=== PATIENT | female | born 1995 | race American Indian/Alaskan Native ===

== ENCOUNTER 2018-10-20 11:37 | Emergency (ER) | payer OTHER, MEDICAID ==
--- NOTE | 2018-10-20 11:52 | Emergency Department Report ---
Blank Doc - Documentation Documentation: This is a 23-year-old female that presents with left foot pain after twisting it today. This initial assessment/diagnostic orders/clinical plan/treatment(s) is/are subject to change based on patient's health status, clinical progression and re- assessment by fellow clinical providers in the ED. Further treatment and workup at subsequent clinical providers discretion. Patient/guardians urged not to elope from the ED as their condition may be serious if not clinically assessed and managed. Initial orders include: 1- Patient sent to [facility] for further evaluation and treatment 2- Xray
--- NOTE | 2018-10-20 12:12 | XRay Report ---
LEFT FOOT, 3 views: History: Left foot pain. The bony architecture is intact. Bony alignment is normal. No soft tissue abnormalities are seen. The joint spaces appear preserved. IMPRESSION: Left foot within normal limits.
[2018-10-20] MEDS ORDERED: IBUPROFEN PO ONE (14:39)
--- NOTE | 2018-10-20 14:45 | Emergency Department Report ---
ED Extremity Problem HPI - General Chief complaint: Extremity Injury, Lower Stated complaint: L ANKLE PAIN Time Seen by Provider: 10/20/18 11:51 Source: patient Mode of arrival: Wheelchair Limitations: No Limitations - History of Present Illness Initial comments: This is a 23-year-old female that presents with left foot pain after twisting it today. -: This afternoon Location: left, lower extremity (ankle) History of Same: No -: Yes myalgia Severity scale (0 -10): 10 Quality: aching, sharp Consistency: constant Improves with: nothing Worsens with: weight bearing, walking - Related Data Previous Rx's Medication Instructions Recorded Last Taken Type traMADol [Ultram] 50 mg PO Q6HR PRN #14 tablet 02/01/15 Unknown Rx Ibuprofen [Motrin 800 MG tab] 800 mg PO Q8HR PRN #30 tablet 10/20/18 Unknown Rx Allergies Allergy/AdvReac Type Severity Reaction Status Date / Time shellfish derived Allergy Swelling Verified 01/29/13 19:46 ED Review of Systems ROS: Stated complaint: L ANKLE PAIN Other details as noted in HPI Comment: All other systems reviewed and negative ED Past Medical Hx - Past Medical History Previous Medical History?: No - Surgical History Past Surgical History?: No - Social History Smoking Status: Never Smoker Substance Use Type: None - Medications Home Medications: Home Medications Medication Instructions Recorded Confirmed Last Taken Type traMADol [Ultram] 50 mg PO Q6HR PRN #14 tablet 02/01/15 Unknown Rx Ibuprofen [Motrin 800 MG tab] 800 mg PO Q8HR PRN #30 tablet 10/20/18 Unknown Rx ED Physical Exam - General Limitations: No Limitations General appearance: alert, in no apparent distress - Head Head exam: Present: atraumatic, normocephalic - Eye Eye exam: Present: normal appearance - ENT ENT exam: Present: mucous membranes moist - Neck Neck exam: Present: normal inspection - Expanded Lower Extremity Exam Left Ankle exam: Present: full ROM, tenderness, swelling. Absent: abrasion, laceration, ecchymosis, deformity, crepidus, dislocation, anterior draw sign Neuro vascular tendon exam: Present: no vascular compromise - Back Exam Back exam: Present: normal inspection - Neurological Exam Neurological exam: Present: alert, oriented X3 - Psychiatric Psychiatric exam: Present: normal affect, normal mood - Skin Skin exam: Present: warm, dry, intact, normal color. Absent: rash ED Course Vital Signs 10/20/18 11:52 Temperature 98 F Pulse Rate 76 Respiratory 17 Rate Blood Pressure 115/76 O2 Sat by Pulse 100 Oximetry ED Medical Decision Making - Radiology Data Radiology results: report reviewed Patient: FACUNDO RIVERA MR#: [id number] 40 : 1995 Acct:[id number] Age/Sex: 23 / F ADM Date: 10/20/18 Loc: ED Attending Dr: Ordering Physician: GHASSAN CHAVEZ NP Date of Service: 10/20/18 Procedure(s): XR foot 3+V LT Accession Number(s): [id number] cc: GHASSAN CHAVEZ NP Fluoro Time In Minutes: LEFT FOOT, 3 views: History: Left foot pain. The bony architecture is intact. Bony alignment is normal. No soft tissue abnormalities are seen. The joint spaces appear preserved. IMPRESSION: Left foot within normal limits. Transcribed By: TTR Dictated By: STEPHANIE ALVARADO JR, MD Electronically Authenticated By: STEPHANIE ALVARADO JR, MD Signed Date/Time: 10/20/18 120 DD/ 1206 TD/TT: 10/20/18 1206 - Medical Decision Making 23-year-old female comes in for left ankle pain after twisting her ankle today. Patient was given ibuprofen 800 mg for pain management. X-ray of left ankle is unremarkable. There is some lateral malleolus swelling with tenderness patient will be placed in a ankle stirrup crutches. Patient is instructed to elevate her foot continue with ice therapy take ibuprofen as needed for pain and swelling in if symptoms persist to follow up with a orthopedic provider. Critical care attestation.: If time is entered above; I have spent that time in minutes in the direct care of this critically ill patient, excluding procedure time. ED Disposition Clinical Impression: Left ankle sprain Disposition: DC-01 TO HOME OR SELFCARE Is pt being admited?: No Does the pt Need Aspirin: No Condition: Stable Additional Instructions: Take ibuprofen as needed. Increase her water intake while taking ibuprofen. Use crutches wear stirrup when her ankle as prescribed. If his symptoms persist need to follow-up with the orthopedic provider. Continue with elevation, ice therapy rest. Prescriptions: Ibuprofen [Motrin 800 MG tab] 800 mg PO Q8HR PRN #30 tablet PRN Reason: Pain Referrals: MAYDA MEDRANO MD [Primary Care Provider] - 3-5 Days Forms: Work/School Release Form(ED)
[2018-10-20 15:19] VITALS: BP 116/74
== END 2018-10-20 15:18 | disposition home or self-care (01) ==
LOC: ED 11:37
DX: S93.402A Sprain of unspecified ligament of left ankle, initial encounter (principal); Z91.013 Allergy to seafood; Z79.1 Long term (current) use of non-steroidal anti-inflammatories (NSAID); W50.2XXA Accidental twist by another person, initial encounter; Y93.89 Activity, other specified; Y92.89 Other specified places as the place of occurrence of the external cause; Y99.8 Other external cause status